=== PATIENT | female | born 1965 | race Caucasian/White ===

== ENCOUNTER 2025-03-15 20:00 | Outpatient (CLI) | payer MEDICARE, SELFPAY | END 2025-03-15 20:01 | disposition home or self-care (01) | LOC: SLEEP 03-16 00:07 | PROVIDERS: Family Provider Family Medicine; PCP Family Medicine; Visit Provider Internal Medicine Pulmonary Disease | DX: G47.33 Obstructive sleep apnea (adult) (pediatric) (principal); G47.36 Sleep related hypoventilation in conditions classified elsewhere | CPT/HCPCS: 95810 ==

== ENCOUNTER 2025-05-18 20:05 | Outpatient (CLI) | payer MEDICARE, SELFPAY | END 2025-05-18 20:06 | disposition home or self-care (01) | LOC: SLEEP 20:07 | PROVIDERS: Family Provider Family Medicine; PCP Family Medicine; Referring Provider Nurse Practitioner Family; Visit Provider Internal Medicine Pulmonary Disease | DX: G47.30 Sleep apnea, unspecified (principal) | CPT/HCPCS: 95811 ==